=== PATIENT | male | born 1930 | race Hispanic/Latino ===

== ENCOUNTER 2019-12-26 18:37 | Inpatient (IN) | payer MEDICARE ==
[~2019-12-26] VITALS: Ht 459.7 cm; Wt 87.3 kg
[2019-12-26] MEDS ORDERED: SODIUM CHLORIDE 0.9% 1000ML 1,000 ML IV ONE (23:55)
--- NOTE | 2019-12-27 00:30 | NUR ---
RECEIVED PT FROM ED PT HAS 18 FR TAPIA CATHETER IN PLACE WITH BRIGHT RED HEMATURIA. ORDERS FROM [facility] ARE FOR A THREE WAY CATHETER AND TO BEGIN IRRIGATION. PT COMFORTABLE, WITH NO S/S OF DISTRESS. PT REPORTS HE DOES NOT HAVE HIS HOME MEDICATIONS WITH HIM AND HIS DAUGHTER WHO IS HIS PROVIDER CAN BRING HIS MEDICATIONS. PT REPORTS THAT HE CAN NOT AMBULATE D/T GBW. IV FLUIDS RUNNING WELL, KAIN WELL. PMHX PROVIDED BY PT. PT A/O X3. PT VERBALIZED AGREEMENT TO MEDICAL PLAN. CALL LIGHT WITHIN REACH, DOOR LEFT OPEN. WILL CONTINUE TO MONITOR.
[2019-12-27 00:35] VITALS: BP 151/97; PULSE 72; RESP 18; TEMP 97.6
[2019-12-27] MEDS: SODIUM CHLORIDE 0.9% 1000ML 1,000 ML IV SCH ×2 (00:45→12:20)
[2019-12-27] MEDS ORDERED: DEXTROSE 50%-WATER 50 ML DISP.SYRIN IV PRN (00:45)
[2019-12-27] MEDS ORDERED: ACETAMINOPHEN 325 MG TAB PO PRN ×3 (00:45→12:00)
[2019-12-27] MEDS ORDERED: GLUCAGON 1MG KIT 1 MG ML IM PRN (00:45)
--- NOTE | 2019-12-27 02:50 | NUR ---
THREE WAY CATHETER PLACED. CBI INITIATED. BRIGHT RED DRAINAGE NOTED IN TAPIA BAG. PT C/O OF DISCOMFORT IN GENITAL AREA. NO PAIN MEDICATION AVAILABLE PRN FOR PAIN PARAMETERS OF 10.W[address] PAGE [facility].
[2019-12-27] MEDS ORDERED: MORPHINE SULFATE 2 MG/ML 1ML SYG IVP ONE (03:30)
[2019-12-27] MEDS ORDERED: MORPHINE SULFATE 2 MG/ML 1ML SYG ONE ×2 (03:30→09:00)
[2019-12-27 04:00] VITALS: BP 126/69; PULSE 71; RESP 18; TEMP 97.9
[2019-12-27] MEDS: INSULIN HUMULIN R 100 UNIT/ML 3ML SQ SCH ×5 (06:21→22:27)
[2019-12-27] MEDS ORDERED: INSULIN R PO SS1 SQ SCH (07:30)
[2019-12-27 08:00] VITALS: BP 159/74; PULSE 82; RESP 18; TEMP 98.2
[2019-12-27] MEDS ORDERED: ONDANSETRON HCL 4 MG/2 ML VIAL IVP PRN (09:00)
[2019-12-27] MEDS: FAMOTIDINE 20MG TAB 20 MG TAB PO SCH ×2 (09:00→21:30)
[2019-12-27] MEDS: ONDANSETRON HCL 4 MG/2 ML VIAL IVP PRN ×2 (09:02→22:28)
[2019-12-27] MEDS ORDERED: MORPHINE SULFATE 2 MG/ML 1ML SYG IVP SCH (09:45)
[2019-12-27] MEDS: MORPHINE SULFATE 2 MG/ML 1ML SYG IM PRN (09:54)
[2019-12-27 12:00] VITALS: BP 110/45; PULSE 74; RESP 16; TEMP 97.5
[2019-12-27] MEDS ORDERED: MAG HYDROX/AL HYDROX/SIMETH ES 30 ML SUSP UDCUP PO PRN (12:00)
[2019-12-27] MEDS ORDERED: LIDOCAINE HCL-MPF 1% 2ML VIAL IV PRN (12:00)
[2019-12-27] MEDS ORDERED: DIPHENHYDRAMINE HCL 25 MG CAPSULE PO PRN (12:00)
[2019-12-27] MEDS ORDERED: ZOLPIDEM TARTRATE 5 MG TAB PO PRN (12:00)
[2019-12-27] MEDS ORDERED: NITROGLYCERIN 0.4 MG SL TAB SL PRN (12:00)
[2019-12-27] MEDS ORDERED: ONDANSETRON HCL 4 MG/2 ML VIAL IV PRN (12:00)
[2019-12-27] MEDS ORDERED: MORPHINE SULFATE 4 MG/1ML SYG IV PRN (12:00)
[2019-12-27] MEDS ORDERED: HYDRALAZINE HCL 20 MG/ML VIAL IV PRN (12:00)
[2019-12-27] MEDS ORDERED: POTASSIUM CHLORIDE 20MEQ/100ML 100 ML IV PRN (12:00)
[2019-12-27] MEDS ORDERED: GUAIFENESIN-DM 200/20 MG 10 ML PO PRN (12:00)
[2019-12-27] MEDS ORDERED: MAGNESIUM 2GM PREMIX 50ML 50 ML IV PRN (12:00)
[2019-12-27] MEDS ORDERED: DiphenhydrAMINE HCL 50 MG/ML VIAL IV PRN (12:00)
--- NOTE | 2019-12-27 13:56 | NUR ---
SPOKE WITH DAUGHTER PAULA ON THE PHONE FOR DC PLANNING STATES FATHER LIVES ALONE, BUT SHE LIVES NEXT BLOCK OVER, STATES SHE IS HIS PROVIDER FOR 44 HRS/WEEK BUT IS THERE MUCH MORE, STATES THAT HE HAS A CANE AND A ROLLING WALKER, AND THE HOME IS SAFE AN ACCESSIBLE, HER SISTER ALSO CARE FOR PATIENT, AND THEY BOTH DRIVE HIM TO HIS APPOINTMENTS, STATE [facility] HE IS IN REMISISON FRO PROSTATE CANCER- HAD 'TREATMENTS' AT [facility] 5 YEARS AGO BUT MAREN NOT SEE ANYONE NOW. STATES LATELY HE HAS BEEN IN A LOT OF PAIN IN HIS BACK, HIS NECK AND HIS JOINTS. SHE WILL PROVIDE TRANSPORT HOME DCP HOME WITH SAME SERVICES. ANTICIPATE RETURN/PROGRESSION FO PROSTATE CANCER. ASKED RN TO ASK PMD FOR PSA IF NOT ALREADY ORDERED. Addendum: 12/27/19 at 1401 by CAITLYN KOROMA RN CM Amended: Links added.
[2019-12-27 16:00] VITALS: BP 123/66; PULSE 71; RESP 18; TEMP 97.8
[2019-12-27 19:30] VITALS: BP 138/62; PULSE 86; RESP 18; TEMP 98.7
[2019-12-27] MEDS: ATORVASTATIN CALCIUM 40 MG TABLET PO SCH (21:29)
[2019-12-27] MEDS ORDERED: AMINOCAPROIC ACID 500 MG TABLET PO STA (21:34)
--- NOTE | 2019-12-27 21:38 | NUR ---
DOCTOR MARILYN SANDERS CAME BY, ASSISTED MD SANDERS IN PT'S ROOM WHILE MD WAS DOING ASSESSMENT. MD ORDERED US RENAL TOMORROW, PSA TEST, AMICAR 500 MG TO START TONIGHT AND AMICAR 500 MG QID TO START TOMORROW 12/28/2019. CALLED PHARMACY SPOKE WITH LINNEA TO INFORM FOR STAT ORDER OF AMICAR TONIGHT. CALLED ULTRASOUND SPOKE WITH OSWALDO REGARDING THE ORDER FOR ULTRASOUND RENAL, NO PREPARATION ACCORDING TO OSWALDO. ORDERED ENTERED INSTRUCTED
[2019-12-27] MEDS: MORPHINE SULFATE 2 MG/ML 1ML SYG IV PRN (21:47)
[2019-12-28] VITALS: BP 140/54; PULSE 82; RESP 18; TEMP 98.2
[2019-12-28] MEDS ORDERED: AMINOCAPROIC ACID 500 MG TABLET PO ONE (01:38)
[2019-12-28] MEDS: SODIUM CHLORIDE 0.9% 1000ML 1,000 ML IV SCH ×2 (01:44→14:33)
[2019-12-28 03:49] VITALS: BP 112/70; PULSE 76; RESP 18; TEMP 98.4
[2019-12-28] MEDS: INSULIN HUMULIN R 100 UNIT/ML 3ML SQ SCH ×4 (06:40→23:00)
[2019-12-28 08:00] VITALS: BP 124/70; PULSE 81; RESP 18; TEMP 98.4
[2019-12-28] MEDS: AMINOCAPROIC ACID 500 MG TABLET PO SCH ×4 (09:00→23:01)
[2019-12-28] MEDS: FAMOTIDINE 20MG TAB 20 MG TAB PO SCH ×2 (09:45→23:01)
[2019-12-28] MEDS: ISOSORBIDE MONO 30MG TAB SR PO SCH (09:45)
[2019-12-28] MEDS: METOPROLOL SUCCINATE 50 MG TAB.SR.24H PO SCH (09:45)
--- NOTE | 2019-12-28 09:49 | NUR ---
Notified pharmacy of pending Amicar not in stock in [facility]. Pharmacy to deliver once ready.
[2019-12-28] MEDS ORDERED: AMINOCAPROIC ACID 500 MG TABLET PO SCH (11:34)
[2019-12-28 11:46] VITALS: BP 107/51; PULSE 81; RESP 18; TEMP 98.3
[2019-12-28 16:00] VITALS: BP 115/60; PULSE 76; RESP 19; TEMP 97.8
--- NOTE | 2019-12-28 19:40 | NUR ---
Patient remains with CBI of sterile saline per MD orders. Urine output appears maradiaga colored with no clots noted. Unable to determine true urine output at this time as pt accidentally pulled out the tubing from FC at this time, but no injury noted. Patient denies pain or bladder spasms. Distress / discomfort not noted. Needs attended.
--- NOTE | 2019-12-28 19:40 | NUR ---
Entered room to address beeping IV pump and noticed patient was uncovered and had pulled tubing from jacobson catheter. Patient stated he was asleep and turned and noticed he was wet. Denies pain, states confusion as to what happened and where he was when he awoke to wet sheets. Catheter still in place, however tubing connected to jacobson and CBI disconnected and draining on floor.No distress noted to connor area. Unable to determine true urine of bag changed at 14:30 as bag now emptied on floor. Removed 1150 mL of red-tinged urine from catheter drainage bag. Cleansed ports of jacobson, CBI, and tubing with aseptic technique. Reconnected tubing after priming new 3000 mL bag for continuation of CBI. Patient re-oriented to place, situation. Reminded patient to call for assistance when changing position or when needing to get out of bed. Patient stated, "okay." Bed low, locked. Call padilla within reach. Pending results of renal US. Provided report to Bishop Salgado RN for continuity of care and to notify Dr. Walter of results when available.
--- NOTE | 2019-12-28 19:41 | NUR ---
DISPO EXPECTED TO BE TO HOME IN CARE OF FAMILY Addendum: 12/28/19 at 1940 by CAITLYN KOROMA RN CM Amended: Links added.
[2019-12-28 21:48] VITALS: BP 141/63; PULSE 75; RESP 20; TEMP 98.2
[2019-12-28] MEDS: ATORVASTATIN CALCIUM 40 MG TABLET PO SCH (23:01)
[2019-12-29 00:16] VITALS: BP 142/77; PULSE 81; RESP 20; TEMP 98.3
[2019-12-29] MEDS: MORPHINE SULFATE 2 MG/ML 1ML SYG IV PRN (02:40)
[2019-12-29 04:30] VITALS: BP 140/66; PULSE 81; RESP 20; TEMP 98.2
[2019-12-29] MEDS: SODIUM CHLORIDE 0.9% 1000ML 1,000 ML IV SCH (05:46)
[2019-12-29] MEDS: INSULIN HUMULIN R 100 UNIT/ML 3ML SQ SCH ×4 (06:37→21:38)
[2019-12-29 08:00] VITALS: BP 130/74; PULSE 74; RESP 19; TEMP 98.3
--- NOTE | 2019-12-29 08:00 | NUR ---
AM SHIFT ASSESSMENT. [address] IN PL[address], WITH CONTINUOUS BLADDER IRRIGATION . URINE LIGHT PINK.
[2019-12-29] MEDS: METOPROLOL SUCCINATE 50 MG TAB.SR.24H PO SCH (09:04)
[2019-12-29] MEDS: AMINOCAPROIC ACID 500 MG TABLET PO SCH ×4 (09:04→21:34)
[2019-12-29] MEDS: FAMOTIDINE 20MG TAB 20 MG TAB PO SCH ×2 (09:05→21:34)
[2019-12-29] MEDS: ISOSORBIDE MONO 30MG TAB SR PO SCH (09:05)
--- NOTE | 2019-12-29 10:00 | NUR ---
HAS BEEN CONFUSED AND HAS BEEN PULLING ON TAPIA,
[2019-12-29] MEDS: MORPHINE SULFATE 2 MG/ML 1ML SYG IM PRN (11:26)
[2019-12-29] MEDS: LACTATED RINGERS 1000ML 1,000 ML IV SCH (11:27)
--- NOTE | 2019-12-29 11:36 | NUR ---
MEDICATED FOR PAIN NOW, STATES HAVING A LOT OF TO PENILE AREA, HAS BEEN PULLING ON TAPIA
[2019-12-29 12:00] VITALS: BP 128/72; PULSE 89; RESP 19; TEMP 98.7
[2019-12-29 16:00] VITALS: BP 122/64; PULSE 72; RESP 18; TEMP 98.8
--- NOTE | 2019-12-29 17:22 | NUR ---
[id number] RECEIVED TELEPHONE CONSENT FROM DAUGHTER PAULA [phone](PER PATIENT REQUEST), I FAXED IM LETTER TO [phone] AND PLACED IN CHART UNDER CONSENT TAB.
[2019-12-29 21:18] VITALS: BP 136/72; PULSE 84; RESP 20; TEMP 98.7
[2019-12-29] MEDS: ATORVASTATIN CALCIUM 40 MG TABLET PO SCH (21:34)
--- NOTE | 2019-12-29 21:35 | NUR ---
MEDS SHIFT ASSESSMENT DONE, PLEASE REFER TO CHART. DUE MEDS ADMINISTERED, TOLERATED WELL. NO DISTRESS NOTED. KEPT RESTED AND COMFORTABLE. CALL LIGHT WITHIN REACH. WILL MONITOR PT. Addendum: 12/30/19 at 0319 by LUC CORREA RN RN Amended: Links added.
[2019-12-30 00:08] VITALS: BP 137/73; PULSE 88; RESP 20; TEMP 99.8
[2019-12-30] MEDS: LACTATED RINGERS 1000ML 1,000 ML IV SCH ×2 (00:27→13:42)
--- NOTE | 2019-12-30 01:00 | NUR ---
PAIN PT COMPLAINTS OF ABDOMINAL PAINS. PT IS PULLING ON HIS F/C. SECURED F/C IN PT'S LEG. TITRATED CBI UNTIL OUTPUT IS CLEAR. MEDICATED WITH TYLENOL #3 1 TAB PO FOR PAINS. KEPT RESTED AND COMFORTABLE IN BED WITH HOB ELEVATED. WILL RE-ASSESS PT.
[2019-12-30] MEDS: ACETAMINOPHEN-CODEINE 300/30MG TAB PO PRN (01:01)
[2019-12-30] MEDS: MORPHINE SULFATE 2 MG/ML 1ML SYG IV PRN (01:57)
--- NOTE | 2019-12-30 02:00 | NUR ---
RE-ASSESS PT STILL COMPLAINTS OF ABDOMINAL PAINS, CLAIMS THAT PAIN HAD NOT SUBSIDED. MEDICATED WITH MORPHINE IV. WILL RE-ASSESS PT.
[2019-12-30 04:32] VITALS: BP 126/69; PULSE 78; RESP 20; TEMP 97.9
[2019-12-30] MEDS: INSULIN HUMULIN R 100 UNIT/ML 3ML SQ SCH ×4 (05:53→21:08)
--- NOTE | 2019-12-30 06:00 | NUR ---
ROUNDS PT RESTING WELL. NO DISTRESS NOTED. CBI OUTPUT IS YELLOW AND CLEAR. TITRATED CBI AT SLOW DRIP. FOR MORE CARE.
[2019-12-30 08:00] VITALS: BP 131/72; PULSE 74; RESP 18; TEMP 98.2
[2019-12-30] MEDS: FAMOTIDINE 20MG TAB 20 MG TAB PO SCH ×2 (09:57→21:05)
[2019-12-30] MEDS: METOPROLOL SUCCINATE 50 MG TAB.SR.24H PO SCH (09:57)
[2019-12-30] MEDS: ISOSORBIDE MONO 30MG TAB SR PO SCH (09:58)
[2019-12-30] MEDS: AMINOCAPROIC ACID 500 MG TABLET PO SCH ×4 (09:58→21:10)
[2019-12-30 12:00] VITALS: BP 122/60; PULSE 82; RESP 18; TEMP 98.3
--- NOTE | 2019-12-30 14:59 | NUR ---
DISCUSSED PATIENT W BUGGYMAN PROB D/C TOMORROW WHEN CBI IS STOPPED AND PATIENT CLEAR, CBI WAS STILL GOING THIS MORNING Addendum: 12/30/19 at 1506 by CAITLYN KOROMA RN CM Amended: Links added.
[2019-12-30 16:00] VITALS: BP 113/66; PULSE 72; RESP 18; TEMP 98.3
[2019-12-30] MEDS: CEFTRIAXONE SODIUM 1 GM IV SCH (21:05)
[2019-12-30] MEDS: ATORVASTATIN CALCIUM 40 MG TABLET PO SCH (21:06)
[2019-12-30 21:10] VITALS: BP 123/58; PULSE 77; RESP 18; TEMP 99.1
--- NOTE | 2019-12-30 21:10 | NUR ---
MEDS SHIFT ASSESSMENT DONE, PLEASE REFER TO CHART. DUE MEDS ADMINISTERED, TOLERATED WELL. KEPT RESTED AND COMFORTABLE. CALL LIGHT WITHIN REACH. WILL MONITOR PT. Addendum: 12/31/19 at 0415 by LUC CORREA RN RN Amended: Links added.
--- NOTE | 2019-12-30 23:45 | NUR ---
SIT UP PT'S BED ALARM ACTIVATED AND PT SEEN ALREADY SITTING DOWN ON SIDE OF BED IN BETWEEN THE SIDE RAIL. PT REFUSING TO GET BACK IN BED AND GETTING FEISTY. TRIED TO CALM PT DOWN AND LET SIT IN BED FOR NOW. PCP ASKED TO STAY WITH PT YET. RESOURCE NURSE MADE AWARE OF PT'S AGGRESSIVE BEHAVIOR. WILL TRANSFER PT TO ROOM 306 FOR MONITORING 2:1 SITTER ONCE ROOM IS AVAILABLE.
[2019-12-31] VITALS (7 sets, daily range): BP systolic 97–165; BP diastolic 50–75; PULSE 71–84; RESP 17–20; TEMP 98.1–99
--- NOTE | 2019-12-31 01:00 | NUR ---
TRANSFER PT IS MORE CALM AT THIS TIME AND AGREED TO GO BACK AND LIE DOWN IN BED. TRANSFERRED TO ROOM 306. SITTER BY PT'S DOOR KEEPING CLOSE WATCH.
[2019-12-31] MEDS: LACTATED RINGERS 1000ML 1,000 ML IV SCH ×2 (01:44→17:00)
--- NOTE | 2019-12-31 02:00 | NUR ---
ROUNDS PT IS ALREADY ASLEEP. NO DISTRESS NOTED. KEPT UNDISTURBED FOR NOW. WILL CONTINUE TO MONITOR. CALL LIGHT WITHIN REACH. SITTER BY PT'S DOOR.
[2019-12-31] MEDS: MORPHINE SULFATE 2 MG/ML 1ML SYG IV PRN (05:14)
[2019-12-31] MEDS: INSULIN HUMULIN R 100 UNIT/ML 3ML SQ SCH ×4 (06:19→20:25)
--- NOTE | 2019-12-31 06:20 | NUR ---
MEDS AWAKENED PT FOR MEDS. DUE INSULIN ADMINISTERED, TOLERATED WELL. CBI OUTPUT IS CLEAR, NO NOTED BLEEDING. DENIES ANY PAINS AT THIS TIME. CLAMPED CBI FOR NOW. ENDORSING TO AM SHIFT FOR MORE CARE AND MANAGEMENT.
[2019-12-31] MEDS: ISOSORBIDE MONO 30MG TAB SR PO SCH (08:18)
[2019-12-31] MEDS: METOPROLOL SUCCINATE 50 MG TAB.SR.24H PO SCH (08:18)
[2019-12-31] MEDS: AMINOCAPROIC ACID 500 MG TABLET PO SCH ×4 (08:18→20:20)
[2019-12-31] MEDS: FAMOTIDINE 20MG TAB 20 MG TAB PO SCH ×2 (08:18→20:20)
[2019-12-31] MEDS: CEFTRIAXONE SODIUM 1 GM IV SCH (16:50)
[2019-12-31] MEDS: ATORVASTATIN CALCIUM 40 MG TABLET PO SCH (20:20)
--- NOTE | 2019-12-31 20:25 | NUR ---
MEDS SHIFT ASSESSMENT DONE, PLEASE REFER TO CHART. DUE MEDS ADMINISTERED, TOLERATED WELL. KEPT RESTED AND COMFORTABLE. CALL LIGHT WITHIN REACH. SITTER ON CLOSE WATCH AT BEDSIDE. WILL MONITOR PT. Addendum: 12/31/19 at 2302 by LUC CORREA RN RN Amended: Links added.
[2019-12-31] MEDS: LACTULOSE 20 GM/30 ML UDCUP PO PRN (23:04)
[2020-01-01] VITALS (7 sets, daily range): BP systolic 106–176; BP diastolic 51–72; PULSE 67–86; RESP 17–20; TEMP 97.8–98.9
--- NOTE | 2020-01-01 02:00 | NUR ---
ROUNDS PT RESTING WELL, FAIRLY ASLEEP. NO DISTRESS NOTED. WILL MONITOR PT. CALL LIGHT WITHIN REACH. SITTER BY PT'S DOOR KEEPING CLOSE WATCH.
[2020-01-01] MEDS: LACTATED RINGERS 1000ML 1,000 ML IV SCH ×2 (04:37→18:15)
--- NOTE | 2020-01-01 05:09 | NUR ---
[facility]HE PCP GAVE PT A BED BATH, TOLERATED ACTIVITY WELL. CASEWORKER INTAKE IN TO DRAW BLOOD. PT VERY COOPERATIVE AT THIS TIME. NO DISTRESS NOTED. KEPT COMFORTABLE. FOR MORE CARE.
[2020-01-01] MEDS: INSULIN HUMULIN R 100 UNIT/ML 3ML SQ SCH ×4 (06:20→23:05)
[2020-01-01] MEDS: MORPHINE SULFATE 2 MG/ML 1ML SYG IV PRN (06:20)
[2020-01-01] MEDS: FAMOTIDINE 20MG TAB 20 MG TAB PO SCH ×2 (09:22→21:00)
[2020-01-01] MEDS: METOPROLOL SUCCINATE 50 MG TAB.SR.24H PO SCH (09:23)
[2020-01-01] MEDS: AMINOCAPROIC ACID 500 MG TABLET PO SCH ×4 (09:23→22:47)
[2020-01-01] MEDS: ISOSORBIDE MONO 30MG TAB SR PO SCH (09:23)
[2020-01-01] MEDS: LACTULOSE 20 GM/30 ML UDCUP PO PRN (09:31)
--- NOTE | 2020-01-01 11:42 | NUR ---
Notified Dr. Gamino regarding consult for elevated BUN, creatinine, GFR. Dr. Gamino will see today.
[2020-01-01] MEDS: MEROPENEM 1 GM VIAL IVP SCH (15:42)
[2020-01-01] MEDS: ATORVASTATIN CALCIUM 40 MG TABLET PO SCH (22:48)
[2020-01-02 04:00] VITALS: BP 150/78; PULSE 72; RESP 18; TEMP 98.1
[2020-01-02] MEDS: ACETAMINOPHEN-CODEINE 300/30MG TAB PO PRN ×2 (06:25→15:38)
[2020-01-02] MEDS: INSULIN HUMULIN R 100 UNIT/ML 3ML SQ SCH ×4 (06:26→21:11)
[2020-01-02 08:00] VITALS: BP 123/64; PULSE 88; RESP 20; TEMP 98.3
[2020-01-02] MEDS: FAMOTIDINE 20MG TAB 20 MG TAB PO SCH ×2 (09:00→21:00)
[2020-01-02] MEDS: POTASSIUM CHLORIDE 10% ELIXIR 20 MEQ/15 ML UDCUP PO PRN ×2 (10:12→12:11)
[2020-01-02] MEDS: METOPROLOL SUCCINATE 50 MG TAB.SR.24H PO SCH (10:13)
[2020-01-02] MEDS: AMINOCAPROIC ACID 500 MG TABLET PO SCH (10:13)
[2020-01-02] MEDS ORDERED: POTASSIUM CHLORIDE 20MEQ/100ML 100 ML IV PRN ×2 (10:15)
[2020-01-02] MEDS ORDERED: POTASSIUM CHLORIDE 20 MEQ ERTAB PO PRN (10:15)
[2020-01-02] MEDS ORDERED: LIDOCAINE HCL-MPF 1% 2ML VIAL IV PRN ×2 (10:15)
[2020-01-02] MEDS: ISOSORBIDE MONO 30MG TAB SR PO SCH (10:16)
[2020-01-02 11:00] VITALS: BP 156/86; PULSE 86; RESP 18; TEMP 97.7
[2020-01-02] MEDS: MEROPENEM 1 GM VIAL IVP SCH (15:37)
[2020-01-02 16:00] VITALS: BP 115/57; PULSE 73; RESP 19; TEMP 98.3
[2020-01-02] MEDS: HYDROMORPHONE HCL 0.5 MG/0.5 ML ML IVP PRN (17:59)
[2020-01-02 19:20] VITALS: BP 106/53; PULSE 70; RESP 17; TEMP 97.8
[2020-01-02] MEDS: ATORVASTATIN CALCIUM 40 MG TABLET PO SCH (21:06)
[2020-01-02 23:27] VITALS: BP 110/56; PULSE 69; RESP 17; TEMP 98
[2020-01-03 03:22] VITALS: BP 145/65; PULSE 76; RESP 17; TEMP 98
[2020-01-03] MEDS: INSULIN HUMULIN R 100 UNIT/ML 3ML SQ SCH ×4 (06:36→21:07)
[2020-01-03 07:09] VITALS: BP 144/65; PULSE 91; RESP 18; TEMP 97.6
[2020-01-03] MEDS: FOLIC ACID/VITAMIN B COMP W-C 1 CAP TAB PO SCH (10:42)
[2020-01-03] MEDS: ISOSORBIDE MONO 30MG TAB SR PO SCH (10:43)
[2020-01-03] MEDS: METOPROLOL SUCCINATE 50 MG TAB.SR.24H PO SCH (10:43)
[2020-01-03 12:00] VITALS: BP 133/67; PULSE 86; RESP 19; TEMP 97.9
[2020-01-03] MEDS: FAMOTIDINE 20MG TAB 20 MG TAB PO SCH ×2 (12:31→19:23)
[2020-01-03] MEDS: MEROPENEM 1 GM VIAL IVP SCH (15:36)
[2020-01-03 16:00] VITALS: BP 102/48; PULSE 86; RESP 18; TEMP 97.6
[2020-01-03] MEDS: ATORVASTATIN CALCIUM 40 MG TABLET PO SCH (19:23)
[2020-01-03 20:00] VITALS: BP 110/47; PULSE 63; RESP 18; TEMP 98.2
[2020-01-03 23:39] VITALS: BP 142/66; PULSE 73; RESP 17; TEMP 98.1
[2020-01-04] MEDS: HYDROMORPHONE HCL 0.5 MG/0.5 ML ML IVP PRN ×2 (01:48→23:16)
--- NOTE | 2020-01-04 02:16 | NUR ---
bladder training every 2 hours by clamping jacobson catheter and unclamping it for 15 minutes. patient doesn't feel any urge to void or any pressure or bladder pain. at 1920, urine output was 75 ml clear urine, at 21:20 urine output was 160 ml of clear urine, at 23:20 there was 200 ml of urine output, at 01:20 there was 250 ml of urine output. will continue to do this every 2 hours
[2020-01-04 04:54] VITALS: BP 155/72; PULSE 75; RESP 18; TEMP 98
--- NOTE | 2020-01-04 05:00 | NUR ---
placed cold packs on patient's right shoulder due to pain and gave him acetaminophen with codeine. will continue to monitor
[2020-01-04] MEDS: ACETAMINOPHEN-CODEINE 300/30MG TAB PO PRN (05:01)
[2020-01-04] MEDS: INSULIN HUMULIN R 100 UNIT/ML 3ML SQ SCH ×4 (05:21→20:42)
[2020-01-04 08:00] VITALS: BP 97/60; PULSE 93; RESP 19; TEMP 97.9
[2020-01-04] MEDS: METOPROLOL SUCCINATE 50 MG TAB.SR.24H PO SCH (09:00)
[2020-01-04] MEDS: ISOSORBIDE MONO 30MG TAB SR PO SCH (09:06)
[2020-01-04] MEDS: FOLIC ACID/VITAMIN B COMP W-C 1 CAP TAB PO SCH (09:06)
[2020-01-04] MEDS: FAMOTIDINE 20MG TAB 20 MG TAB PO SCH ×2 (09:06→19:35)
[2020-01-04 12:00] VITALS: BP 137/79; PULSE 87; RESP 18; TEMP 97.8
[2020-01-04] MEDS: MEROPENEM 1 GM VIAL IVP SCH (14:33)
[2020-01-04 16:00] VITALS: BP 145/77; PULSE 90; RESP 20; TEMP 98.6
--- NOTE | 2020-01-04 16:42 | NUR ---
DC TAPIA DC TAPIA, EMPTIED APPROX 225ML FROM URINE BAG, REMOVED 20CC OF FLUID FROM CATHETER , PATIENT TOLERATED PROCEDURE WITHOUT INCIDENT. PATIENT DUE TO VOID IN 6 HOURS OR 2240 HOURS.
[2020-01-04] MEDS: ATORVASTATIN CALCIUM 40 MG TABLET PO SCH (19:35)
[2020-01-04 20:00] VITALS: BP 142/74; PULSE 83; RESP 18; TEMP 98.5
--- NOTE | 2020-01-04 23:00 | NUR ---
patient voided 300 ml of hematuria. i checked his bladder with the bladder scanner and it showed 400 ml of urine and patient's bladder was tender and distended. placed a 16 mexican jacobson catheter on the patient at 23:30.
[2020-01-05] VITALS: BP 152/79; PULSE 87; RESP 18; TEMP 98.7
[2020-01-05 04:00] VITALS: BP 122/57; PULSE 89; RESP 18; TEMP 98
[2020-01-05] MEDS: ACETAMINOPHEN-CODEINE 300/30MG TAB PO PRN (04:50)
[2020-01-05] MEDS: INSULIN HUMULIN R 100 UNIT/ML 3ML SQ SCH ×3 (05:45→16:15)
[2020-01-05 08:32] VITALS: BP 115/66; PULSE 93; RESP 20; TEMP 96.8
[2020-01-05] MEDS: FAMOTIDINE 20MG TAB 20 MG TAB PO SCH (09:00)
[2020-01-05] MEDS: METOPROLOL SUCCINATE 50 MG TAB.SR.24H PO SCH (10:48)
[2020-01-05] MEDS: FOLIC ACID/VITAMIN B COMP W-C 1 CAP TAB PO SCH (10:48)
[2020-01-05] MEDS: ISOSORBIDE MONO 30MG TAB SR PO SCH (10:49)
[2020-01-05 11:51] VITALS: BP 100/48; PULSE 98; RESP 20; TEMP 96.8
[2020-01-05 16:00] VITALS: BP 143/84; PULSE 88; RESP 18; TEMP 98
[2020-01-05] MEDS: MEROPENEM 1 GM VIAL IVP SCH (16:09)
--- NOTE | 2020-01-05 16:22 | NUR ---
Called Daughter to notify of discharge order. Daughter to care for patient, will arrive at 18:00 to receive patient and receive instructions for jacobson catheter care. Reviewed care over telephone but will reinforce with literature and personal demonstration when arrives.
--- NOTE | 2020-01-05 16:32 | NUR ---
Called Dr. Walter's office to schedule follow up appointment. Per Jil, patient must see PCP first and have PCP referr patient to Dr. Walter. Notified patient's daughter.
--- NOTE | 2020-01-05 18:45 | NUR ---
Removed PIV to RFA, bleeding controlled, dressing applied. Patient assisted downstairs to emergency entrance. Daughter Yessy and patient's son received discharge instructions, reviewed medications prescribed and follow up appointments. Marks catheter care reviewed and demonstrated instructions for cleansing, changing drainage bag. Patient's daughter and son verbalized understanding. Prescription for Augmentin provided to daughter. Patient transported home by family.
== END 2020-01-05 18:26 | disposition home or self-care (01) | DRG 683 ==
LOC: EDH 18:37 → OBSVTOIN 22:32 → 3BH 22:32 → 3DH 01-03 09:37 → 3AH 01-03 09:38
PROVIDERS: ADMIT Internal Medicine; ATTEND Internal Medicine
DX: N17.9 Acute kidney failure, unspecified (principal); N30.01 Acute cystitis with hematuria; D62 Acute posthemorrhagic anemia; N20.0 Calculus of kidney; I25.10 Atherosclerotic heart disease of native coronary artery without angina pectoris; I25.5 Ischemic cardiomyopathy; R33.9 Retention of urine, unspecified; R91.1 Solitary pulmonary nodule; Z95.1 Presence of aortocoronary bypass graft; Z85.46 Personal history of malignant neoplasm of prostate; E78.5 Hyperlipidemia, unspecified; E11.21 Type 2 diabetes mellitus with diabetic nephropathy; E11.51 Type 2 diabetes mellitus with diabetic peripheral angiopathy without gangrene; E03.9 Hypothyroidism, unspecified; B96.1 Klebsiella pneumoniae [K. pneumoniae] as the cause of diseases classified elsewhere; D64.9 Anemia, unspecified; E11.22 Type 2 diabetes mellitus with diabetic chronic kidney disease; F03.90 Unspecified dementia, unspecified severity, without behavioral disturbance, psychotic disturbance, mood disturbance, and anxiety; I12.9 Hypertensive chronic kidney disease with stage 1 through stage 4 chronic kidney disease, or unspecified chronic kidney disease; B95.2 Enterococcus as the cause of diseases classified elsewhere; I25.2 Old myocardial infarction; J44.9 Chronic obstructive pulmonary disease, unspecified; N18.9 Chronic kidney disease, unspecified; Z79.02 Long term (current) use of antithrombotics/antiplatelets; Z79.82 Long term (current) use of aspirin; Z82.49 Family history of ischemic heart disease and other diseases of the circulatory system; Z87.891 Personal history of nicotine dependence; Z92.3 Personal history of irradiation; Z95.5 Presence of coronary angioplasty implant and graft